=== PATIENT | male | born 1980 | race Caucasian/White ===

== ENCOUNTER 2019-06-06 16:36 | Emergency (ER) | payer SELFPAY ==
[~2019-06-06] VITALS: Ht 188 cm; Wt 83.9 kg
[2019-06-06 18:59] VITALS: BP 177/84
== END 2019-06-06 19:35 | disposition home or self-care (01) ==
LOC: ER 16:36
DX: H10.9 Unspecified conjunctivitis (principal); F12.10 Cannabis abuse, uncomplicated

== ENCOUNTER → 2019-06-19 | Emergency (ER) | payer MEDICAID ==
[~2019-06-19] VITALS: Ht 188 cm; Wt 83.9 kg
[~2019-06-19] MED LIST: KETOROLAC TROMETH 60MG/2ML VIAL IM ONE
[2019-06-19 19:02] VITALS: BP 128/82
== END | disposition home or self-care (01) ==
LOC: ER 18:20
DX: S83.92XA Sprain of unspecified site of left knee, initial encounter (principal); X50.1XXA Overexertion from prolonged static or awkward postures, initial encounter; Y93.89 Activity, other specified; Y92.89 Other specified places as the place of occurrence of the external cause; Y99.8 Other external cause status
CPT/HCPCS: 73562; 99283; J1885

== ENCOUNTER → 2019-10-06 | Emergency (ER) | payer SELFPAY ==
[~2019-10-06] VITALS: Ht 188 cm; Wt 90.7 kg
[~2019-10-06] MED LIST changes: +HYDROcodone-ACET 10/325MG TAB PO ONE; -KETOROLAC TROMETH 60MG/2ML VIAL IM ONE; +LIDOCAINE 1% HCL (LOCAL ANESTH.) INJ 20ML MDV IJ ONE; +TETANUS-DIPTH-ACEL PERTUSSIS 0.5ML SYR Tdap IM ONE; +cefTRIAXone SOD 1,000 MG VL IM ONE
[2019-10-06 03:00] VITALS: BP 106/62
== END | disposition home or self-care (01) ==
LOC: ER 00:36
DX: S02.40DA Maxillary fracture, left side, initial encounter for closed fracture (principal); S62.241A Displaced fracture of shaft of first metacarpal bone, right hand, initial encounter for closed fracture; W19.XXXA Unspecified fall, initial encounter; Y93.55 Activity, bike riding; Y92.89 Other specified places as the place of occurrence of the external cause; Y99.8 Other external cause status
CPT/HCPCS: 29125; 70450; 70486; 72125; 73030; 73130; 90471; 90715; 96372; 99285; J0696

== ENCOUNTER 2020-01-17 07:55 | Emergency (ER) | payer MEDICAID ==
[~2020-01-17] VITALS: Ht 188 cm; Wt 83.9 kg
[2020-01-17 08:18] VITALS: BP 161/91
[2020-01-17] MEDS ORDERED: KETOROLAC TROMETH 60MG/2ML VIAL IM ONE (09:00)
== END 2020-01-17 09:16 | disposition home or self-care (01) ==
LOC: ER 07:55
DX: S62.031A Displaced fracture of proximal third of navicular [scaphoid] bone of right wrist, initial encounter for closed fracture (principal); V19.9XXA Pedal cyclist (driver) (passenger) injured in unspecified traffic accident, initial encounter; Y93.55 Activity, bike riding; Y92.488 Other paved roadways as the place of occurrence of the external cause; Y99.8 Other external cause status
CPT/HCPCS: 29125; 73110; 96372; 99283; J1885

== ENCOUNTER → 2021-10-20 | Emergency (ER) | payer MEDICAID | END | disposition left against medical advice (07) | LOC: ER 06:27 | DX: M25.511 Pain in right shoulder (principal); Z53.21 Procedure and treatment not carried out due to patient leaving prior to being seen by health care provider ==